=== PATIENT | female | born 1950 | race Two or more races ===

== ENCOUNTER 2019-12-05 15:00 | Day surgery (SDC) | payer MEDICARE, MEDICAID ==
[~2019-12-05] VITALS: Ht 165.1 cm; Wt 71.4 kg
[2019-12-05] MEDS ORDERED: LACTATED RINGERS 1,000 ML IV SCH (15:22)
[2019-12-05] MEDS ORDERED: MIDAZOLAM 1 MG/ML, 2ML ONE (15:23)
[2019-12-05] MEDS ORDERED: FENTANYL PF 100 MCG/2ML ONE (15:23)
[2019-12-05 15:29] VITALS: BP 131/83
[2019-12-05] MEDS ORDERED: GLIP10TA13 PO (15:49)
[2019-12-05] MEDS ORDERED: ENAL20TA PO (15:49)
[2019-12-05] MEDS ORDERED: SITA50TA PO (15:49)
[2019-12-05] MEDS ORDERED: PROMETHAZINE 25 MG/ML, 1ML IM PRN (16:00)
[2019-12-05] MEDS ORDERED: HYDROcodone/APAP 5/325 TABLET PO PRN (16:00)
[2019-12-05] MEDS ORDERED: ONDANSETRON 2MG/ML, 2ML IVPush PRN (16:00)
[2019-12-05 16:07] LABS: ANION GAP 8 mmol/L (5-15); CHLORIDE 107 mmol/L (98-107)
[2019-12-05 16:11] LABS: ALANINE AMINOTRANSFERASE 31 U/L (12-78); ALKALINE PHOSPHATASE 118 U/L (45-117); BILIRUBIN,TOTAL 0.5 mg/dL (0.2-1.0); CREATININE 0.92 mg/dL (0.55-1.02); TOTAL PROTEIN 8.1 g/dL (6.4-8.2)
[2019-12-05] MEDS ORDERED: PROMETHAZINE 25 MG/ML, 1ML IV PRN (16:30)
[2019-12-05] MEDS ORDERED: METOPROLOL 1 MG/ML, 5ML IV PRN (16:30)
[2019-12-05] MEDS ORDERED: MEPERIDINE/PF 25MG/ML,1ML IVPush PRN (16:30)
[2019-12-05] MEDS ORDERED: ALBUTEROL/IPRATROPIUM 2.5MG/0.5MG, 3 ML NPPB PRN (16:30)
[2019-12-05] MEDS ORDERED: ACETAMINOPHEN 325 MG TABLET PO PRN (16:30)
[2019-12-05] MEDS ORDERED: hydrALAzine 20 MG/ML, 1ML IV PRN (16:30)
[2019-12-05] MEDS ORDERED: OXYcodone 5 MG/5 ML ORAL.SOL UDC PO PRN (16:30)
[2019-12-05] MEDS ORDERED: FENTANYL PF 100 MCG/2ML IV PRN (16:30)
[2019-12-05] MEDS ORDERED: MIDAZOLAM 1 MG/ML, 2ML IV PRN (16:30)
[2019-12-05] MEDS ORDERED: ONDANSETRON 2MG/ML, 2ML ONE (17:24)
[2019-12-05] MEDS ORDERED: CEFAZOLIN 1,000 MG ONE (17:24)
[2019-12-05] MEDS ORDERED: DEXAMETHASONE 4 MG/ML, 1ML ONE (17:24)
[2019-12-05] MEDS ORDERED: BUPIVACAINE/PF 0.5% ONE (17:24)
[2019-12-05] MEDS ORDERED: PROPOFOL 10 MG/ML, 20ML ONE (17:24)
== END 2019-12-05 19:58 | disposition home or self-care (01) ==
LOC: OR 15:00 → 4NE 18:51 → OR 19:58
PROVIDERS: ATTEND Surgery Surgery of the Hand
DX: S52.591P Other fractures of lower end of right radius, subsequent encounter for closed fracture with malunion (principal); I10 Essential (primary) hypertension; E11.9 Type 2 diabetes mellitus without complications; Z79.84 Long term (current) use of oral hypoglycemic drugs; Z79.899 Other long term (current) drug therapy; Z87.891 Personal history of nicotine dependence; W18.39XD Other fall on same level, subsequent encounter
CPT/HCPCS: 25350; 36415; 64415; 73100; 80053; 93005; C1713; C1762; C1769; J0690; J1100; J2250; J2405; J2704; J3010; 76000; G0378